=== PATIENT | female | born 1960 | race Two or more races ===

== ENCOUNTER 2022-04-11 17:03 | Inpatient (IN) | payer OTHER ==
[~2022-04-11] VITALS: Ht 157.5 cm; Wt 68.3 kg
[2022-04-11] MEDS ORDERED: ONDANSETRON HCL 4 MG/2 ML VIAL IV ONE (18:30)
[2022-04-11] MEDS ORDERED: SODIUM CHLORIDE 0.9% 1,000 ML IV ONE (18:30)
[2022-04-11 19:15] LABS: Basophils # (auto) 0 10 ^3/uL (0-0.2); Basophils % (auto) 0.3 % (0.0-2.0); Eosinophils # (auto) 0.1 10 ^3/uL (0-0.8); Eosinophils % (auto) 1.4 % (0.0-7.0); Hematocrit 34.9 % (36.0-46.0); Hemoglobin 11.9 g/dL (12.2-16.2); Lymphocytes # (auto) 1.8 10 ^3/uL (0.4-5.4); Lymphocytes % (auto) 22.3 % (10.0-50.0); Mean Corpuscular Hemoglobin 28.5 pg (28.0-32.0); Mean Corpuscular Volume 83.8 fL (80.0-100.0); Monocytes # (auto) 0.8 10 ^3/uL (0-1.3); Monocytes % (auto) 9.5 % (0.0-12.0); Neutrophils # (auto) 5.4 10 ^3/uL (1.6-8.6); Neutrophils % (auto) 66.5 % (37.0-80.0); Red Blood Cells 4.17 10^6/uL (4.0-5.20); White Blood Cell 8.1 10^3/uL (4.4-10.8)
[2022-04-11 19:27] LABS: Urine Bacteria NONE SEEN /hpf (None Seen); Urine Specific Gravity 1.015 (1.001-1.035); Urine WBC 1 /hpf (0 - 5)
[2022-04-11 19:28] LABS: Urine Blood Normal /uL (Negative)
[2022-04-11 19:44] LABS: Albumin 3.7 g/dL (3.4-5.0); Calcium 9.4 mg/dL (8.5-10.1); Magnesium 1.7 mg/dL (1.6-2.6); Potassium 3.9 mmol/L (3.5-5.1)
[2022-04-11 19:49] LABS: Bilirubin, Total 0.4 mg/dL (0.2-1.0); Total Protein 7.8 g/dL (6.4-8.2)
[2022-04-11 20:01] LABS: INR 1.01 (0.9-1.15); Partial Thromboplastin Time 31.3 sec (24.6-33.4)
[2022-04-11] MEDS ORDERED: ASPirin 81 mg TAB PO ONE (21:00)
[2022-04-11] MEDS ORDERED: ACETAMINOPHEN 325 MG TAB PO PRN (21:15)
[2022-04-11] MEDS ORDERED: DEXTROSE (50%) 50ML SYRG IV PRN (21:15)
[2022-04-11] MEDS ORDERED: MORPHINE SULFATE INJ 2 MG/ml SYRG IV PRN (21:15)
[2022-04-11] MEDS ORDERED: ONDANSETRON HCL 4 MG/2 ML VIAL IV PRN (21:15)
[2022-04-11] MEDS ORDERED: NITROGLYCERIN 0.4 MG SL TAB SL PRN (21:15)
[2022-04-11] MEDS ORDERED: TEMAZEPAM 15 MG CAP PO PRN (21:15)
[2022-04-11] MEDS ORDERED: ENOXAPARIN SOD 80 MG/0.8ML SYRINGE SC ONE (21:45)
[2022-04-11] MEDS: ACCU-CHEK COMFORT CURVE STRIP VI SCH (22:00)
[2022-04-11] MEDS: InsuLIN REG 1unit/0.01ml Soln (100units/ml) SC SCH (22:00)
[2022-04-11] MEDS: ATORVASTATIN 20 MG TAB PO SCH (22:00)
[2022-04-12 06:30] LABS: Basophils # (auto) 0 10 ^3/uL (0-0.2); Basophils % (auto) 0.2 % (0.0-2.0); Eosinophils # (auto) 0.2 10 ^3/uL (0-0.8); Eosinophils % (auto) 2.4 % (0.0-7.0); Hematocrit 31.1 % (36.0-46.0); Hemoglobin 10.7 g/dL (12.2-16.2); Lymphocytes # (auto) 2.4 10 ^3/uL (0.4-5.4); Lymphocytes % (auto) 36.1 % (10.0-50.0); Mean Corpuscular Hemoglobin 28.6 pg (28.0-32.0); Mean Corpuscular Hgb Conc. 34.4 g/dL (32.0-36.0); Monocytes # (auto) 0.7 10 ^3/uL (0-1.3); Monocytes % (auto) 11.4 % (0.0-12.0); Neutrophils # (auto) 3.2 10 ^3/uL (1.6-8.6); Neutrophils % (auto) 49.9 % (37.0-80.0); Nucleated Red Blood Cells % 0.1 %; Red Blood Cells 3.75 10^6/uL (4.0-5.20); Red Cell Distribution Width 14.7 % (11.8-14.3); White Blood Cell 6.5 10^3/uL (4.4-10.8)
[2022-04-12] MEDS ORDERED: LOPERAMIDE HCL 2 MG CAP/TAB PO PRN (06:30)
[2022-04-12] MEDS: ACCU-CHEK COMFORT CURVE STRIP VI SCH ×4 (06:34→21:48)
[2022-04-12] MEDS: LEVOTHYROXINE SODIUM 100 MCG TAB PO SCH (06:34)
[2022-04-12] MEDS: InsuLIN REG 1unit/0.01ml Soln (100units/ml) SC SCH ×4 (06:34→21:48)
[2022-04-12 06:48] LABS: Calcium 8.8 mg/dL (8.5-10.1); Potassium 3.5 mmol/L (3.5-5.1)
[2022-04-12 06:59] LABS: Albumin 3.2 g/dL (3.4-5.0); BUN/Creatinine Ratio 20.4; Bilirubin, Total 0.6 mg/dL (0.2-1.0); Total Protein 6.6 g/dL (6.4-8.2)
[2022-04-12] MEDS: ENOXAPARIN SOD 30 MG/0.3 ML SYRINGE SC SCH (09:53)
[2022-04-12] MEDS: PANTOPRAZOLE 40 MG TAB PO SCH (09:53)
[2022-04-12] MEDS: HCTZ 25 MG TAB PO SCH (09:54)
[2022-04-12] MEDS: LOSARTAN POTASSIUM 50 MG TAB PO SCH (09:55)
[2022-04-12] MEDS: amLODIPine BESYLATE 5 MG TAB PO SCH (09:56)
[2022-04-12] MEDS: ASPirin 81 mg TAB PO SCH (09:56)
[2022-04-12 11:28] LABS: Cholesterol 100 mg/dL (< 200)
[2022-04-12 11:32] LABS: HDL Cholesterol 49 mg/dL (40-59); LDL Cholesterol 45 mg/dL (< 100); Triglycerides 111 mg/dL (< 150)
[2022-04-12] MEDS ORDERED: ADENOSINE 55 MG in GIVE UN-DILUTED 0 ML IV ONE (11:45)
[2022-04-12] MEDS: ATORVASTATIN 20 MG TAB PO SCH (21:48)
[2022-04-13] VITALS (14 sets, daily range): BP systolic 127–158; BP diastolic 53–66
[2022-04-13] MEDS: ACCU-CHEK COMFORT CURVE STRIP VI SCH ×4 (06:21→23:24)
[2022-04-13] MEDS: LEVOTHYROXINE SODIUM 100 MCG TAB PO SCH (06:21)
[2022-04-13] MEDS: InsuLIN REG 1unit/0.01ml Soln (100units/ml) SC SCH ×4 (06:22→23:24)
[2022-04-13] MEDS ORDERED: ADENOSINE 55 MG in GIVE UN-DILUTED 0 ML IV ONE (08:00)
[2022-04-13] MEDS: amLODIPine BESYLATE 5 MG TAB PO SCH (10:53)
[2022-04-13] MEDS: HCTZ 25 MG TAB PO SCH (10:54)
[2022-04-13] MEDS: PANTOPRAZOLE 40 MG TAB PO SCH (10:54)
[2022-04-13] MEDS: ASPirin 81 mg TAB PO SCH (10:55)
[2022-04-13] MEDS: LOSARTAN POTASSIUM 50 MG TAB PO SCH (10:56)
[2022-04-13] MEDS: ENOXAPARIN SOD 30 MG/0.3 ML SYRINGE SC SCH (10:56)
[2022-04-13] MEDS: SODIUM CHLORIDE 0.9% 1,000 ML IV SCH (16:10)
[2022-04-13] MEDS ORDERED: MIDAZOLAM HCL 2MG/2ML 2ml VIAL (1mg/ml) ONE (20:25)
[2022-04-13] MEDS ORDERED: ANGIOMAX 250 MG VIAL IV ONE (20:25)
[2022-04-13] MEDS ORDERED: VERAPAMIL 2.5MG/ML INJ 2ML VIAL IV ONE (20:25)
[2022-04-13] MEDS ORDERED: SODIUM CHL 0.9% 0 ML ONE (20:25)
[2022-04-13] MEDS ORDERED: fentaNYL CITRATE 100 MCG/2 ML VL ONE (20:30)
[2022-04-13] MEDS ORDERED: IODIXANOL 320MG/ML 100ML BTL IV ONE ×2 (20:43→21:14)
[2022-04-13] MEDS ORDERED: METOPROLOL TARTRATE 1MG/1ML-5ML VIAL IV ONE (21:18)
[2022-04-13] MEDS: ATORVASTATIN 20 MG TAB PO SCH (23:30)
[2022-04-14] VITALS (9 sets, daily range): BP systolic 110–148; BP diastolic 41–65
[2022-04-14 05:51] LABS: Basophils # (auto) 0 10 ^3/uL (0-0.2); Basophils % (auto) 0.3 % (0.0-2.0); Eosinophils # (auto) 0.1 10 ^3/uL (0-0.8); Eosinophils % (auto) 1.7 % (0.0-7.0); Hematocrit 33.3 % (36.0-46.0); Hemoglobin 11.4 g/dL (12.2-16.2); Lymphocytes # (auto) 2.5 10 ^3/uL (0.4-5.4); Mean Corpuscular Hemoglobin 28.8 pg (28.0-32.0); Mean Corpuscular Hgb Conc. 34.2 g/dL (32.0-36.0); Mean Corpuscular Volume 84.2 fL (80.0-100.0); Monocytes # (auto) 0.8 10 ^3/uL (0-1.3); Monocytes % (auto) 11.4 % (0.0-12.0); Neutrophils # (auto) 3.6 10 ^3/uL (1.6-8.6); Neutrophils % (auto) 51.6 % (37.0-80.0); Nucleated Red Blood Cells % 0.1 %; Red Blood Cells 3.96 10^6/uL (4.0-5.20); Red Cell Distribution Width 14.8 % (11.8-14.3)
[2022-04-14 06:13] LABS: BUN/Creatinine Ratio 14.3; Calcium 9.8 mg/dL (8.5-10.1); Potassium 3.9 mmol/L (3.5-5.1)
[2022-04-14] MEDS: LEVOTHYROXINE SODIUM 100 MCG TAB PO SCH (06:26)
[2022-04-14] MEDS: ACCU-CHEK COMFORT CURVE STRIP VI SCH ×4 (06:28→21:07)
[2022-04-14] MEDS: InsuLIN REG 1unit/0.01ml Soln (100units/ml) SC SCH ×4 (06:28→21:09)
[2022-04-14] MEDS: METOPROLOL SUCCINATE XL 50 MG TAB PO SCH (09:50)
[2022-04-14] MEDS: LOSARTAN POTASSIUM 50 MG TAB PO SCH (09:50)
[2022-04-14] MEDS: ASPirin 81 mg TAB PO SCH (09:51)
[2022-04-14] MEDS: amLODIPine BESYLATE 5 MG TAB PO SCH (09:51)
[2022-04-14] MEDS: ENOXAPARIN SOD 30 MG/0.3 ML SYRINGE SC SCH (09:52)
[2022-04-14] MEDS: HCTZ 25 MG TAB PO SCH (09:52)
[2022-04-14] MEDS: PANTOPRAZOLE 40 MG TAB PO SCH (09:53)
[2022-04-14] MEDS: SODIUM CHLORIDE 0.9% 1,000 ML IV SCH (10:45)
[2022-04-14] MEDS: ATORVASTATIN 20 MG TAB PO SCH (21:07)
[2022-04-15 05:00] VITALS: BP 117/46
[2022-04-15] MEDS: LEVOTHYROXINE SODIUM 100 MCG TAB PO SCH (06:16)
[2022-04-15] MEDS: SODIUM CHLORIDE 0.9% 1,000 ML IV SCH ×2 (06:16→19:00)
[2022-04-15] MEDS: ACCU-CHEK COMFORT CURVE STRIP VI SCH ×4 (06:18→21:23)
[2022-04-15] MEDS: InsuLIN REG 1unit/0.01ml Soln (100units/ml) SC SCH ×4 (06:18→21:23)
[2022-04-15 09:00] VITALS: BP 117/51
[2022-04-15] MEDS: LOSARTAN POTASSIUM 50 MG TAB PO SCH (09:46)
[2022-04-15] MEDS: ASPirin 81 mg TAB PO SCH (09:46)
[2022-04-15] MEDS: METOPROLOL SUCCINATE XL 50 MG TAB PO SCH (09:46)
[2022-04-15] MEDS: amLODIPine BESYLATE 5 MG TAB PO SCH (09:46)
[2022-04-15] MEDS: HCTZ 25 MG TAB PO SCH (09:47)
[2022-04-15] MEDS: PANTOPRAZOLE 40 MG TAB PO SCH (09:47)
[2022-04-15] MEDS: ENOXAPARIN SOD 30 MG/0.3 ML SYRINGE SC SCH (09:47)
[2022-04-15] MEDS ORDERED: LACTULOSE 20Gm/30ML SOLN PO ONE (11:00)
[2022-04-15 13:00] VITALS: BP 131/60
[2022-04-15 16:46] VITALS: BP 127/50
[2022-04-15] MEDS: ATORVASTATIN 20 MG TAB PO SCH (21:21)
[2022-04-15 22:00] VITALS: BP 119/50
[2022-04-16] VITALS (7 sets, daily range): BP systolic 97–135; BP diastolic 44–69
[2022-04-16 05:38] LABS: Basophils # (auto) 0 10 ^3/uL (0-0.2); Basophils % (auto) 0.6 % (0.0-2.0); Eosinophils # (auto) 0.2 10 ^3/uL (0-0.8); Eosinophils % (auto) 2.3 % (0.0-7.0); Hematocrit 34.4 % (36.0-46.0); Hemoglobin 11.4 g/dL (12.2-16.2); Lymphocytes # (auto) 2.6 10 ^3/uL (0.4-5.4); Lymphocytes % (auto) 34.7 % (10.0-50.0); Mean Corpuscular Hemoglobin 28.3 pg (28.0-32.0); Mean Corpuscular Hgb Conc. 33.3 g/dL (32.0-36.0); Mean Corpuscular Volume 85.1 fL (80.0-100.0); Monocytes # (auto) 0.8 10 ^3/uL (0-1.3); Monocytes % (auto) 10.1 % (0.0-12.0); Neutrophils % (auto) 52.3 % (37.0-80.0); Red Blood Cells 4.04 10^6/uL (4.0-5.20); Red Cell Distribution Width 14.8 % (11.8-14.3); White Blood Cell 7.6 10^3/uL (4.4-10.8)
[2022-04-16 05:41] LABS: INR 1.01 (0.9-1.15); Partial Thromboplastin Time 30.8 sec (24.6-33.4)
[2022-04-16 05:48] LABS: BUN/Creatinine Ratio 11.1; Calcium 9.4 mg/dL (8.5-10.1); Potassium 4.1 mmol/L (3.5-5.1)
[2022-04-16] MEDS: LEVOTHYROXINE SODIUM 100 MCG TAB PO SCH (06:01)
[2022-04-16] MEDS: ACCU-CHEK COMFORT CURVE STRIP VI SCH ×4 (06:04→21:40)
[2022-04-16] MEDS: InsuLIN REG 1unit/0.01ml Soln (100units/ml) SC SCH ×4 (06:04→21:50)
[2022-04-16] MEDS: ENOXAPARIN SOD 40 MG/0.4 ML SYRINGE SC SCH (10:00)
[2022-04-16] MEDS: amLODIPine BESYLATE 5 MG TAB PO SCH (10:02)
[2022-04-16] MEDS: HCTZ 25 MG TAB PO SCH (10:02)
[2022-04-16] MEDS: PANTOPRAZOLE 40 MG TAB PO SCH (10:03)
[2022-04-16] MEDS: LOSARTAN POTASSIUM 50 MG TAB PO SCH (10:03)
[2022-04-16] MEDS: ASPirin 81 mg TAB PO SCH (10:03)
[2022-04-16] MEDS: METOPROLOL SUCCINATE XL 50 MG TAB PO SCH (10:04)
[2022-04-16] MEDS: SODIUM CHLORIDE 0.9% 1,000 ML IV SCH (17:14)
[2022-04-16] MEDS: ATORVASTATIN 20 MG TAB PO SCH (21:39)
[2022-04-17 05:00] VITALS: BP 129/53
[2022-04-17] MEDS: ACCU-CHEK COMFORT CURVE STRIP VI SCH ×4 (06:04→21:39)
[2022-04-17] MEDS: InsuLIN REG 1unit/0.01ml Soln (100units/ml) SC SCH ×4 (06:04→21:38)
[2022-04-17] MEDS: LEVOTHYROXINE SODIUM 100 MCG TAB PO SCH (06:04)
[2022-04-17 08:05] VITALS: BP 127/61
[2022-04-17] MEDS: PANTOPRAZOLE 40 MG TAB PO SCH (09:55)
[2022-04-17] MEDS: amLODIPine BESYLATE 5 MG TAB PO SCH (09:55)
[2022-04-17] MEDS: ASPirin 81 mg TAB PO SCH (09:55)
[2022-04-17] MEDS: METOPROLOL SUCCINATE XL 50 MG TAB PO SCH (09:55)
[2022-04-17] MEDS: LOSARTAN POTASSIUM 50 MG TAB PO SCH (09:56)
[2022-04-17] MEDS: ENOXAPARIN SOD 40 MG/0.4 ML SYRINGE SC SCH (09:59)
[2022-04-17] MEDS: HCTZ 25 MG TAB PO SCH (09:59)
[2022-04-17 12:05] VITALS: BP 115/49
[2022-04-17 16:00] VITALS: BP 147/61
[2022-04-17] MEDS: SODIUM CHLORIDE 0.9% 1,000 ML IV SCH (18:45)
[2022-04-17 20:00] VITALS: BP 135/69
[2022-04-17] MEDS: ATORVASTATIN 20 MG TAB PO SCH (21:37)
[2022-04-17 22:00] VITALS: BP 106/48
[2022-04-18] VITALS (10 sets, daily range): BP systolic 112–173; BP diastolic 45–64
[2022-04-18] MEDS: LEVOTHYROXINE SODIUM 100 MCG TAB PO SCH (06:03)
[2022-04-18] MEDS: ACCU-CHEK COMFORT CURVE STRIP VI SCH ×4 (06:03→22:28)
[2022-04-18] MEDS: InsuLIN REG 1unit/0.01ml Soln (100units/ml) SC SCH ×4 (06:03→22:30)
[2022-04-18] MEDS: SODIUM CHLORIDE 0.9% 1,000 ML IV SCH (06:34)
[2022-04-18] MEDS ORDERED: ANGIOMAX 250 MG VIAL IV ONE ×2 (07:34→10:02)
[2022-04-18] MEDS ORDERED: fentaNYL CITRATE 100 MCG/2 ML VL ONE (07:34)
[2022-04-18] MEDS ORDERED: MIDAZOLAM HCL 2MG/2ML 2ml VIAL (1mg/ml) ONE (07:35)
[2022-04-18] MEDS ORDERED: SODIUM CHL 0.9% 0 ML ONE (07:35)
[2022-04-18] MEDS ORDERED: LIDOCAINE 2%HCL (LOCAL ANESTH.) INJ 10ml MDV ONE (07:45)
[2022-04-18] MEDS ORDERED: HEPARIN IN NS 1000Units/500mL 1,500 ML ONE (07:45)
[2022-04-18] MEDS ORDERED: IODIXANOL 320MG/ML 100ML BTL IV ONE ×2 (07:45→08:23)
[2022-04-18] MEDS ORDERED: VERAPAMIL 2.5MG/ML INJ 2ML VIAL IV ONE (08:22)
[2022-04-18] MEDS ORDERED: HEPARIN SODIUM (PORCINE) 5000 UNITS/ML 1ML VIAL ONE (08:22)
[2022-04-18] MEDS ORDERED: LIDOCAINE 2%HCL (LOCAL ANESTH.) INJ 20ML MDV ONE (09:30)
[2022-04-18] MEDS ORDERED: HYDROmorphone HCL 2 MG/ML VL/or syr ONE (09:33)
[2022-04-18] MEDS: amLODIPine BESYLATE 5 MG TAB PO SCH (10:00)
[2022-04-18] MEDS: PANTOPRAZOLE 40 MG TAB PO SCH (10:00)
[2022-04-18] MEDS: LOSARTAN POTASSIUM 50 MG TAB PO SCH (10:00)
[2022-04-18] MEDS: HCTZ 25 MG TAB PO SCH (10:00)
[2022-04-18] MEDS: METOPROLOL SUCCINATE XL 50 MG TAB PO SCH (10:00)
[2022-04-18] MEDS: ENOXAPARIN SOD 40 MG/0.4 ML SYRINGE SC SCH (10:00)
[2022-04-18] MEDS ORDERED: SODIUM CHL 0.9% 50 ML ONE (10:03)
[2022-04-18] MEDS ORDERED: ASPirin 81 mg TAB PO ONE (11:30)
[2022-04-18] MEDS ORDERED: LOSA-69 PO (13:45)
[2022-04-18] MEDS ORDERED: RIVA10TA2 PO (13:45)
[2022-04-18] MEDS ORDERED: AML5T PO (13:45)
[2022-04-18] MEDS ORDERED: METO-6 PO (13:45)
[2022-04-18] MEDS ORDERED: LEV100T PO (13:45)
[2022-04-18] MEDS ORDERED: HYDR25TA5 PO (13:45)
[2022-04-18] MEDS: hydrALAZINE HCL 20 MG/ML VL IV PRN (17:33)
[2022-04-18] MEDS ORDERED: ATORVASTATIN 20 MG TAB PO SCH (22:00)
[2022-04-18] MEDS: RIVAROXABAN 10 MG TAB PO SCH (22:22)
[2022-04-19 05:07] VITALS: BP 133/55
[2022-04-19] MEDS: LEVOTHYROXINE SODIUM 100 MCG TAB PO SCH (06:11)
[2022-04-19] MEDS: InsuLIN REG 1unit/0.01ml Soln (100units/ml) SC SCH ×2 (06:11→11:44)
[2022-04-19] MEDS: ACCU-CHEK COMFORT CURVE STRIP VI SCH ×2 (06:11→11:12)
[2022-04-19] MEDS: hydrALAZINE HCL 20 MG/ML VL IV PRN (08:14)
[2022-04-19 08:30] VITALS: BP 155/71
[2022-04-19] MEDS: LOSARTAN POTASSIUM 50 MG TAB PO SCH (09:39)
[2022-04-19] MEDS: PANTOPRAZOLE 40 MG TAB PO SCH (09:39)
[2022-04-19] MEDS: amLODIPine BESYLATE 5 MG TAB PO SCH (09:40)
[2022-04-19] MEDS: HCTZ 25 MG TAB PO SCH (09:40)
[2022-04-19] MEDS: METOPROLOL SUCCINATE XL 50 MG TAB PO SCH (09:41)
[2022-04-19] MEDS: SODIUM CHLORIDE 0.9% 1,000 ML IV SCH (10:45)
[2022-04-19] MEDS: RIVAROXABAN 10 MG TAB PO SCH (10:45)
[2022-04-19 11:35] LABS: Calcium 8.9 mg/dL (8.5-10.1); Potassium 3.8 mmol/L (3.5-5.1)
[2022-04-19 11:37] LABS: BUN/Creatinine Ratio 14.3
[2022-04-19 12:30] VITALS: BP 130/71
== END 2022-04-19 15:12 | disposition home or self-care (01) | DRG 182 ==
LOC: ER 17:03 → TELE 21:12 → TELE-WESTW 04-12 22:08
PROVIDERS: ADMIT Nurse Practitioner; ATTEND Internal Medicine
PROC: B211YZZ Fluoroscopy of Multiple Coronary Arteries using Other Contrast (ICD-10-PCS; 2022-04-13)
PROC: B215YZZ Fluoroscopy of Left Heart using Other Contrast (ICD-10-PCS; 2022-04-13)
PROC: B41FYZZ Fluoroscopy of Right Lower Extremity Arteries using Other Contrast (ICD-10-PCS; 2022-04-13)
PROC: 4A023N8 Measurement of Cardiac Sampling and Pressure, Bilateral, Percutaneous Approach (ICD-10-PCS; 2022-04-13)
PROC: 047K3ZZ Dilation of Right Femoral Artery, Percutaneous Approach (ICD-10-PCS; principal; 2022-04-18)
PROC: 047C3ZZ Dilation of Right Common Iliac Artery, Percutaneous Approach (ICD-10-PCS; 2022-04-18)
PROC: B41FYZZ Fluoroscopy of Right Lower Extremity Arteries using Other Contrast (ICD-10-PCS; 2022-04-18)
PROC: 047R3ZZ Dilation of Right Posterior Tibial Artery, Percutaneous Approach (ICD-10-PCS; 2022-04-18)
DX: I21.4 Non-ST elevation (NSTEMI) myocardial infarction (principal); E11.51 Type 2 diabetes mellitus with diabetic peripheral angiopathy without gangrene; E11.22 Type 2 diabetes mellitus with diabetic chronic kidney disease; I42.2 Other hypertrophic cardiomyopathy; I73.9 Peripheral vascular disease, unspecified; R19.7 Diarrhea, unspecified; R01.1 Cardiac murmur, unspecified; E03.9 Hypothyroidism, unspecified; E78.5 Hyperlipidemia, unspecified; I12.9 Hypertensive chronic kidney disease with stage 1 through stage 4 chronic kidney disease, or unspecified chronic kidney disease; N18.30 Chronic kidney disease, stage 3 unspecified; Z87.891 Personal history of nicotine dependence; Z20.822 Contact with and (suspected) exposure to COVID-19
CPT/HCPCS: 36415; 37224; 71045; 74176; 75710; 78452; 80048; 80053; 80061; 81001; 82962; 83036; 83605; 83690; 83735; 84443; 84484; 85025; 85610; 85730; 86850; 86900; 86901; 87040; 87045; 87426; 87427; 87493; 87804; 93005; 93017; 93306; 93460; 96360; 99152; 99153; C1725; C1751; G0378; J0153; J1815; J2001; J2250; Q9967